=== PATIENT | female | born 1960 | race Caucasian/White ===

== ENCOUNTER 2018-04-12 16:27 | Emergency (ER) | payer BC ==
--- OUTSIDE RECORDS SUMMARY | 2018-04-12 16:36 | XMS REPORT ---
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] Problem Breast Mass 611.72 Active 83917864 Problem Postmenopausal N95.2 Active 11608018 atrophic vaginitis Problem Excessive and N92.0 Active 175845973 frequent menstruation with regular cycle Problem Other abnormal and R92.8 Active 231026805 inconclusive findings on diagnostic imaging of breast Problem Family history of Z80.3 Active 555168779 malignant neoplasm of breast ALLERGIES No Information ENCOUNTERS Encounter Location Date Diagnosis [facility] [address] Jul, OBGYN [place], [place] [id number] [facility] 103 Jul, OBGYN [place] [id number] [address] May, [facility] [address] [place], [place] [id number] [facility] [address] [place], May, [facility] [id number] [facility] Apr, [place] [id number] [facility] 103 Mar, OBGYN [place] [id number] [facility] 103 Mar, OBGYN [place], [place] [id number] [facility] 103 Mar, Endometrial intraepithelial OBGYN [facility] neoplasia [EIN] N85.02 [place], [place] [id number] [place] [facility] 103 Mar, OBGYN [place] [id number] [place] [facility] 103 Mar, OBGYN [place], [place] [id number] [place] [facility] Mar, OBGYN [place], [place] [id number] [place] [facility] [address] [place] [address] Mar, Endometrial intraepithelial [address] [place], neoplasia [EIN] N85.02 ; [place] [id number] Excessive and frequent menstruation with regular cycle N92.0 and Leiomyoma of uterus, unspecified D25.9 [place] [facility] 103 February, Endometrial intraepithelial OBGYN [facility] neoplasia [EIN] N85.02 [place] [id number] [place] [facility] 103 February, [place] [id number] [place] [facility] February, OBGYN [place], [place] [id number] [facility] [address] [place], February, Excessive and frequent [place] [id number] menstruation with regular cycle N92.0 and Leiomyoma of uterus, unspecified D25.9 [place] [facility] [address] [facility] February, Excessive and frequent OBGYN [address] [place], menstruation with regular [place] [id number] cycle N92.0 and Leiomyoma of uterus, unspecified D25.9 [place] [facility] 103 February, OBGYN [place], [place] [id number] [place] [facility] [address] [facility] February, Excessive and frequent OBGYN [address] [place], menstruation with regular [place] [id number] cycle N92.0 and Leiomyoma of uterus, unspecified D25.9 [place] [facility] Jan, OBGYN [place] [id number] [place] [facility] [address] [place] [address] 13 Jan, 2018 Excessive and frequent OBGYN [address] [place], menstruation with regular [place] [id number] cycle N92.0 [facility] 103 Jan, Excessive and frequent OBGYN [facility] menstruation with regular [place], [place] [id number] cycle N92.0 [place] [facility] 103 Jan, [facility]oma of uterus, [facility] unspecified D25.9 and [place] [id number] Excessive and frequent menstruation with regular cycle N92.0 [place] [facility] [address] [place] [address] Dec, Excessive and frequent OBGYN [address] [place], menstruation with regular [place] [id number] cycle N92.0 and Leiomyoma of uterus, unspecified D25.9 [facility] Dec, OBGYN [place] [id number] [facility] Oct, Other abnormal and [facility] inconclusive findings on [place] [id number] diagnostic imaging of breast R92.8 [facility] 103 Jul, [facility] [place] [id number] (routine) without abnormal findings Z01.419 ; Family history of malignant neoplasm of breast Z80.3 ; Encounter for screening mammogram for malignant neoplasm of breast Z12.31 ; Encounter for screening for malignant neoplasm of colon Z12.11 and Other abnormal and inconclusive findings on diagnostic imaging of breast R92.8 [facility] Jul, [facility]omyoma of uterus, [facility] unspecified D25.9 [place] [id number] [facility] 103 Apr, Family history of malignant [facility] neoplasm of breast Z80.3 ; [place], [place] [id number] Breast Mass 611.72 and Other abnormal and inconclusive findings on diagnostic imaging of breast R92.8 [facility] Mar, [place] [id number] [facility] 13 Jan, 2017 Family history of malignant [address], neoplasm of breast Z80.3 ; [place] [id number] Excessive and frequent menstruation with regular cycle N92.0 ; Leiomyoma of uterus, unspecified D25.9 and Unspecified urinary incontinence R32 [facility] Jul, Encounter for gynecological [address], examination (general) [place] [id number] (routine) with abnormal findings Z01.411 ; Encounter for screening for malignant neoplasm of cervix Z12.4 ; Encounter for screening mammogram for malignant neoplasm of breast Z12.31 ; Encounter for screening for malignant neoplasm of colon Z12.11 ; Excessive and frequent menstruation with regular cycle N92.0 ; Leiomyoma of uterus, unspecified D25.9 ; Unspecified urinary incontinence R32 and Postmenopausal atrophic vaginitis N95.2 [facility] 103 Apr, Excessive and frequent OBGYN [facility] menstruation with regular [place], [place] [id number] cycle N92.0 ; Leiomyoma of uterus, unspecified D25.9 ; Unspecified urinary incontinence R32 ; Postmenopausal atrophic vaginitis N95.2 and Unspecified ovarian cysts N83.20 [place] [facility] 103 Apr, Leiomyoma of uterus, OBGYN [facility] unspecified D25.9 and Other [place], [place] [id number] ovarian cysts N83.29 [facility] 103 Mar, [facility] menstruation with regular [place], [place] [id number] cycle N92.0 ; Leiomyoma of uterus, unspecified D25.9 ; Unspecified urinary incontinence R32 and Postmenopausal atrophic vaginitis N95.2 [place] [facility] 103 Mar, Leiomyoma of uterus, OBGYN [facility] unspecified D25.9 and Other [place] [id number] ovarian cysts N83.29 [facility] Nov, Excessive and frequent [facility] menstruation with regular [place], [place] [id number] cycle N92.0 ; Unspecified ovarian cysts N83.20 ; Leiomyoma of uterus, unspecified D25.9 ; Unspecified urinary incontinence R32 and Postmenopausal atrophic vaginitis N95.2 [facility] 103 Nov, Leiomyoma of uterus, [facility] unspecified D25.9 and [place] [id number] Unspecified ovarian cysts N83.20 [facility] 103 Sep, [facility] menstruation with regular [place], [place] [id number] cycle N92.0 ; Unspecified ovarian cysts N83.20 ; Leiomyoma of uterus, unspecified D25.9 and Unspecified urinary incontinence R32 [facility] 103 Sep, Leiomyoma of uterus, [facility] unspecified D25.9 and Other [place], [place] [id number] ovarian cysts N83.29 [facility] 103 Aug, [facility] frequent [facility] menstruation with regular [place] [id number] cycle N92.0 ; Unspecified ovarian cysts N83.20 ; Leiomyoma of uterus, unspecified D25.9 and Unspecified urinary incontinence R32 [facility] 103 Aug, Unspecified ovarian cysts [facility] N83.20 and Leiomyoma of [place], [place] [id number] uterus, unspecified D25.9 [facility] 103 Jun, Menometrorrhagia 626.2 ; [facility] Leiomyoma of uterus, [place] [id number] unspecified 218.9 ; Incontinence 788.30 and Headache 784.0 [facility] 103 Jun, Leiomyoma of uterus, [facility] unspecified 218.9 and [place], [place] [id number] Menometrorrhagia 626.[address] Apr, Menometrorrhagia 626.2 ; [facility] [address] [place], Cervical polyp 622.7 ; [place] [id number] Headache 784.0 and Incontinence 788.30 [place] [facility] [address] [place], Apr, Medical [facility] [id number] [facility] 103 Apr, Menometrorrhagia 626.2 [place] [id number] [address] Apr, Menorrhagia [address] [place] [id number] [facility] 103 February, [place], [place] [id number] [address] February, Menometrorrhagia 626.2 ; OBGYN [address] [place] [address], Leiomyoma of uterus, [place] [id number] unspecified 218.9 ; Cervical polyp 622.7 and Headache [address]84[address] [place] Jan, Menometrorrhagia [address] [place] [id number] [facility] 103 Jan, Menometrorrhagia 626.2 and [facility] Cervical polyp 622.7 [place] [id number] [facility] 103 Jan, Menometrorrhagia 626.2 and [facility] Leiomyoma of uterus, [place], [place] [id number] unspecified 218.[address] Jan, Menometrorrhagia [address]26[address] [place] [address], Cervical polyp 622.7 [place] [id number] [facility] 103 Dec, [place], [place] [id number] IMMUNIZATIONS No Known Immunizations SOCIAL HISTORY Never Assessed REASON FOR REFERRAL FUNCTIONAL STATUS PLAN OF CARE VITAL SIGNS MEDICATIONS Unknown Medications PROCEDURES No Known procedures RESULTS No Results REASON FOR VISIT bleeding MEDICAL (GENERAL) HISTORY Type Description Date Medical History eczema - mild on hands Medical History depression Medical History left arm fracture while walk-running (04/2014) Medical History chronic upper back issues and right shoulder/neck Surgical History colonoscopy 09/07/13 Surgical History Hysteroscopy, D+C, polypectomy 04/19/15 Surgical History hysteroscopy, D&C. 02/25/18 Hospitalization History childbirth 1991 Hospitalization History childbirth 1996
--- OUTSIDE RECORDS SUMMARY | 2018-04-12 16:37 | XMS REPORT ---
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 932323143 intraepithelial neoplasia [EIN] Problem Breast Mass 611.72 Active 92892373 Problem Postmenopausal N95.2 Active 87348571 atrophic vaginitis Problem Excessive and N92.0 Active 192010304 frequent menstruation with regular cycle Problem Other abnormal and R92.8 Active 076998942 inconclusive findings on diagnostic imaging of breast Problem Family history of Z80.3 Active 373799723 malignant neoplasm of breast ALLERGIES No Information ENCOUNTERS Encounter Location Date Diagnosis [facility] 103 Jul, [place] [id number] [facility] Jul, [place] [id number] [address] May, [facility] [address] [place], [place] [id number] [facility] [address] [place], May, [facility] [id number] [facility] 103 Apr, OBGYN [place], [place] [id number] [facility] 103 Mar, [place] [id number] [facility] 103 Mar, Endometrial intraepithelial OBN [facility] neoplasia [EIN] N85.02 [place] [id number] [facility] 103 Mar, OBGYN [place], [place] [id number] [place] [facility] 103 Mar, OBGYN [place], [place] [id number] [place] [facility] 103 Mar, OBGYN [place], [place] [id number] [place] [facility] [address] [facility] Mar, Endometrial intraepithelial OBGYN [address] [place], neoplasia [EIN] N85.02 ; [place] [id number] Excessive and frequent menstruation with regular cycle N92.0 and Leiomyoma of uterus, unspecified D25.9 [place] [facility] 103 February, Endometrial intraepithelial OBGYN [facility] neoplasia [EIN] N85.02 [place] [id number] [place] [facility] 103 February, OBG[place] [id number] [place] [facility] 103 February, OBGYN [place] [id number] [facility] [address] [place], February, Excessive and frequent [place] [id number] menstruation with regular cycle N92.0 and Leiomyoma of uterus, unspecified D25.9 [place] [facility] [address] [facility] February, Excessive and frequent OBGYN [address] [place], menstruation with regular [place] [id number] cycle N92.0 and Leiomyoma of uterus, unspecified D25.9 [place] [facility] 103 February, OBGYN [place], [place] [id number] [place] [facility] [address] [facility] February, Excessive and frequent OBGYN [address] [place], menstruation with regular [place] [id number] cycle N92.0 and Leiomyoma of uterus, unspecified D25.9 [place] [facility] 103 Jan, OBGYN [place], [place] [id number] [place] [facility] [address] [facility] Jan, Excessive and frequent OBGYN [address] [place], menstruation with regular [place] [id number] cycle N92.0 [facility] 103 Jan, Excessive and frequent OBGYN [facility] menstruation with regular [place], [place] [id number] cycle N92.0 [facility] 103 Jan, [facility]oma of uterus, [facility] unspecified D25.9 and [place] [id number] Excessive and frequent menstruation with regular cycle N92.0 [place] [facility] [address] [place] [address] [facility] Dec, Excessive and frequent OBGYN [address] [place], menstruation with regular [place] [id number] cycle N92.0 and Leiomyoma of uterus, unspecified D25.9 [place] [facility] 103 Dec, OBGYN [place], [place] [id number] [place] [facility] 103 Oct, Other abnormal and [facility] inconclusive findings on [place], [place] [id number] diagnostic imaging of breast R92.8 [facility] 103 Jul, Encounter for gynecological [facility] examination (general) [place], [place] [id number] (routine) without abnormal findings Z01.419 ; Family history of malignant neoplasm of breast Z80.3 ; Encounter for screening mammogram for malignant neoplasm of breast Z12.31 ; Encounter for screening for malignant neoplasm of colon Z12.11 and Other abnormal and inconclusive findings on diagnostic imaging of breast R92.8 [facility] 103 Jul, Leiomyoma of uterus, OBGYN [facility] unspecified D25.9 [place] [id number] [facility] 103 Apr, Family history of malignant [facility] neoplasm of breast Z80.3 ; [place], [place] [id number] Breast Mass 611.72 and Other abnormal and inconclusive findings on diagnostic imaging of breast R92.8 [facility] 103 Mar, OBGYN [place], [place] [id number] [place] [facility] [address] [place] [address] [facility] Jan, [facility] [address] [place], neoplasm of breast Z80.3 ; [place] [id number] Excessive and frequent menstruation with regular cycle N92.0 ; Leiomyoma of uterus, unspecified D25.9 and Unspecified urinary incontinence R32 [address] Jul, [facility] [address] [place], examination (general) [place] [id number] (routine) with abnormal findings Z01.411 ; Encounter for screening for malignant neoplasm of cervix Z12.4 ; Encounter for screening mammogram for malignant neoplasm of breast Z12.31 ; Encounter for screening for malignant neoplasm of colon Z12.11 ; Excessive and frequent menstruation with regular cycle N92.0 ; Leiomyoma of uterus, unspecified D25.9 ; Unspecified urinary incontinence R32 and Postmenopausal atrophic vaginitis N95.2 [place] [facility] 103 Apr, [facility] menstruation with regular [place], [place] [id number] cycle N92.0 ; Leiomyoma of uterus, unspecified D25.9 ; Unspecified urinary incontinence R32 ; Postmenopausal atrophic vaginitis N95.2 and Unspecified ovarian cysts N83.20 [place] [facility] 103 Apr, Leiomyoma of uterus, OBGYN [facility] unspecified D25.9 and Other [place], [place] [id number] ovarian cysts N83.29 [place] [facility] 103 Mar, Excessive and frequent OBGYN [facility] menstruation with regular [place], [place] [id number] cycle N92.0 ; Leiomyoma of uterus, unspecified D25.9 ; Unspecified urinary incontinence R32 and Postmenopausal atrophic vaginitis N95.2 [place] [facility] 103 Mar, Leiomyoma of uterus, OBGYN [facility] unspecified D25.9 and Other [place], [place] [id number] ovarian cysts N83.29 [place] [facility] 103 Nov, Excessive and frequent [facility] menstruation with regular [place] [id number] cycle N92.0 ; Unspecified ovarian cysts N83.20 ; Leiomyoma of uterus, unspecified D25.9 ; Unspecified urinary incontinence R32 and Postmenopausal atrophic vaginitis N95.2 [place] [facility] 103 Nov, Leiomyoma of uterus, [facility] unspecified D25.9 and [place] [id number] Unspecified ovarian cysts N83.20 [place] [facility] 103 Sep, Excessive and frequent [facility] menstruation with regular [place], [place] [id number] cycle N92.0 ; Unspecified ovarian cysts N83.20 ; Leiomyoma of uterus, unspecified D25.9 and Unspecified urinary incontinence R32 [place] [facility] 103 Sep, Leiomyoma of uterus, [facility] unspecified D25.9 and Other [place] [id number] ovarian cysts N83.29 [facility] 103 Aug, Excessive and frequent [facility] menstruation with regular [place], [place] [id number] cycle N92.0 ; Unspecified ovarian cysts N83.20 ; Leiomyoma of uterus, unspecified D25.9 and Unspecified urinary incontinence R32 [facility] 103 Aug, Unspecified ovarian cysts [facility] N83.20 and Leiomyoma of [place], [place] [id number] uterus, unspecified D25.9 [facility] 103 Jun, Menometrorrhagia 626.2 ; [facility] Leiomyoma of uterus, [place] [id number] unspecified 218.9 ; Incontinence 788.30 and Headache 784.0 [place] [facility] 103 Jun, Leiomyoma of uterus, [facility] unspecified 218.9 and [place], [place] [id number] Menometrorrhagia 626.[address] Apr, Menometrorrhagia 626.2 ; [facility] [address] [place], Cervical polyp 622.7 ; [place] [id number] Headache 784.0 and Incontinence 788.30 [facility] 2009 [place], Apr, Medical [place] [id number] [facility] 103 Apr, Menometrorrhagia 626.2 [place] [id number] [address] Apr, Menorrhagia [address] [place] [id number] [facility] 103 February, [place], [place] [id number] [address] February, Menometrorrhagia 626.2 ; O[address]YN [address] [place] [address], Leiomyoma of uterus, [place] [id number] unspecified 218.9 ; Cervical polyp 622.7 and Headache 784.[address] Jan, Menometrorrhagia [address] [place] [id number] [place] [facility] 103 Jan, Menometrorrhagia 626.2 and [facility] Cervical polyp 622.7 [place] [id number] [facility] 103 Jan, Menometrorrhagia 626.2 and [facility] Leiomyoma of uterus, [place], [place] [id number] unspecified 218.[address] Jan, Menometrorrhagia [address]26[address] [place], Cervical polyp 622.7 [place] [id number] [facility] 103 Dec, [place], [place] [id number] IMMUNIZATIONS No Known Immunizations SOCIAL HISTORY Never Assessed REASON FOR REFERRAL FUNCTIONAL STATUS PLAN OF CARE VITAL SIGNS MEDICATIONS Unknown Medications PROCEDURES No Known procedures RESULTS No Results REASON FOR VISIT Re:RE:New Refill Request MEDICAL (GENERAL) HISTORY Type Description Date Medical History eczema - mild on hands Medical History depression Medical History left arm fracture while walk-running (04/2014) Medical History chronic upper back issues and right shoulder/neck Surgical History colonoscopy 12/3/13 Surgical History Hysteroscopy, D+C, polypectomy 04/19/15 Surgical History hysteroscopy, D&C. 02/25/18 Hospitalization History childbirth 1991 Hospitalization History childbirth 1996
--- OUTSIDE RECORDS SUMMARY | 2018-04-12 16:37 | XMS REPORT ---
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] Problem Breast Mass 611.72 Active 63045478 Problem Postmenopausal N95.2 Active 24177283 atrophic vaginitis Problem Excessive and N92.0 Active 027511267 frequent menstruation with regular cycle Problem Other abnormal and R92.8 Active 665582220 inconclusive findings on diagnostic imaging of breast Problem Family history of Z80.3 Active 728762345 malignant neoplasm of breast ALLERGIES No Information ENCOUNTERS Encounter Location Date Diagnosis [facility] [place] [address] Jul, [place] [id number] [facility] [place]Note 2[facility] Jul, [place] [id number] [address] May, [facility] [address] [place], [place] [id number] [facility] [place] [facility] [address] [place], May, [facility] [id number] [facility] [place] 2[facility] Apr, [place] [id number] [facility] [place]Note 2[facility] [address] Mar, [place] [id number] [facility] [address] Mar, [place] [id number] [facility] [place]Note 2[facility] Mar, [place] [id number] [place] [facility] [address] [facility] Mar, Endometrial intraepithelial [address] [place], neoplasia [EIN] N85.02 ; [place] [id number] Excessive and frequent menstruation with regular cycle N92.0 and Leiomyoma of uterus, unspecified D25.9 [place] [facility] February, Endometrial intraepithelial OBGYN [facility] neoplasia [EIN] N85.02 [place] [id number] [place] [facility] February, [place] [id number] [place] [facility] February, [place] [id number] [facility] [address] [place], February, Excessive and frequent [facility] [place] [address] menstruation with regular cycle N92.0 and Leiomyoma of uterus, unspecified D25.9 [place] [facility] [address] [facility] February, Excessive and frequent [address]YN [address] [place], menstruation with regular [place] [id number] cycle N92.0 and Leiomyoma of uterus, unspecified D25.9 [place] [facility] [address] February, [place] [id number] [place] [facility] [address] [place] [facility] February, Excessive and frequent [address]BGYN [address] [place], menstruation with regular [place] [address] cycle N92.0 and Leiomyoma of uterus, unspecified D25.9 [place] [facility] Jan, [place] [id number] [place] [facility] [address] [facility] Jan, Excessive and frequent [address]BGYN [address] [place], menstruation with regular [place] [id number] cycle N92.0 [place] [facility] [address] Jan, Excessive and frequent OBGYN [facility] menstruation with regular [place], [place] [address] cycle N92.0 [place] [facility] Jan, Leiomyoma of uterus, OBGYN [facility] unspecified D25.9 and [place], [place] [id number] Excessive and frequent menstruation with regular cycle N92.[address] Dec, Excessive and frequent [address]BGYN [address] [place], menstruation with regular [place] [id number] cycle N92.0 and Leiomyoma of uterus, unspecified D25.9 [facility] Dec, O[place] [id number] [facility] Oct, Other abnormal and OBGYN [facility] inconclusive findings on [place] [id number] diagnostic imaging of breast R92.8 [facility] 103 Jul, Encounter for gynecological OBGYN [facility] examination (general) [place], [place] [id number] (routine) without abnormal findings Z01.419 ; Family history of malignant neoplasm of breast Z80.3 ; Encounter for screening mammogram for malignant neoplasm of breast Z12.31 ; Encounter for screening for malignant neoplasm of colon Z12.11 and Other abnormal and inconclusive findings on diagnostic imaging of breast R92.8 [facility] 103 Jul, Leiomyoma of uterus, OBGYN [facility] unspecified D25.9 [place] [id number] [facility] Apr, [facility] of [facility] Z80.3 ; [place], [place] [id number] Breast Mass 611.72 and Other abnormal and inconclusive findings on diagnostic imaging of breast R92.8 [facility] 103 Mar, OBG[place] [id number] [address] Jan, Family history of malignant OBGYN [address] [place], neoplasm of breast Z80.3 ; [place] [id number] Excessive and frequent menstruation with regular cycle N92.0 ; Leiomyoma of uterus, unspecified D25.9 and Unspecified urinary incontinence R[address] [place] [address] Jul, Encounter for gynecological [address]BGYN [address] [place], [facility] (general) [place] [id number] (routine) with abnormal findings Z01.411 ; Encounter for screening for malignant neoplasm of cervix Z12.4 ; Encounter for screening mammogram for malignant neoplasm of breast Z12.31 ; Encounter for screening for malignant neoplasm of colon Z12.11 ; Excessive and frequent menstruation with regular cycle N92.0 ; Leiomyoma of uterus, unspecified D25.9 ; Unspecified urinary incontinence R32 and Postmenopausal atrophic vaginitis N95.2 [place] [facility] Apr, Excessive and frequent OBGYN [facility] menstruation with regular [place], [place] [address] cycle N92.0 ; Leiomyoma of uterus, unspecified D25.9 ; Unspecified urinary incontinence R32 ; Postmenopausal atrophic vaginitis N95.2 and Unspecified ovarian cysts N83.20 [place] [facility] [address] Apr, Leiomyoma of uterus, OBGYN [facility] unspecified D25.9 and Other [place], [place] [address] ovarian cysts N83.29 [place] [facility] Mar, Excessive and frequent OBGYN [facility] menstruation with regular [place], [place] [address] cycle N92.0 ; Leiomyoma of uterus, unspecified D25.9 ; Unspecified urinary incontinence R32 and Postmenopausal atrophic vaginitis N95.2 [place] [facility] Mar, Leiomyoma of uterus, OBGYN [facility] unspecified D25.9 and Other [place], [place] [id number] ovarian cysts N83.29 [place] [facility] Nov, Excessive and frequent OBGYN [facility] menstruation with regular [place], [place] [address] cycle N92.0 ; Unspecified ovarian cysts N83.20 ; Leiomyoma of uterus, unspecified D25.9 ; Unspecified urinary incontinence R32 and Postmenopausal atrophic vaginitis N95.2 [place] [facility] Nov, Leiomyoma of uterus, OBGYN [facility] unspecified D25.9 and [place] [id number] Unspecified ovarian cysts N83.20 [facility] Sep, [facility] and frequent [facility] menstruation with regular [place] [address] cycle N92.0 ; Unspecified ovarian cysts N83.20 ; Leiomyoma of uterus, unspecified D25.9 and Unspecified urinary incontinence R32 [facility] 103 Sep, Leiomyoma of uterus, [facility] unspecified D25.9 and Other [place], [place] [id number] ovarian cysts N83.29 [facility] 103 Aug, Excessive and frequent [facility] menstruation with regular [place] [address] cycle N92.0 ; Unspecified ovarian cysts N83.20 ; Leiomyoma of uterus, unspecified D25.9 and Unspecified urinary incontinence R32 [facility] Aug, Unspecified [facility] N83.20 and Leiomyoma of [place] [id number] uterus, unspecified D25.9 [facility] 103 Jun, Menometrorrhagia 626.2 ; [facility] Leiomyoma of uterus, [place] [id number] unspecified 218.9 ; Incontinence 788.30 and Headache 784.0 [facility] 103 Jun, Leiomyoma of uterus, [facility] unspecified 218.9 and [place], [place] [id number] Menometrorrhagia [address]26.[address] Apr, Menometrorrhagia 626.2 ; [facility] [address] [place], Cervical polyp 622.7 ; [place] [id number] Headache 784.0 and Incontinence 788.30 [facility] [address] [place], Apr, [facility] [place] [id number] [facility] Apr, Menometrorrhagia 626.2 [place] [id number] [address] Apr, Menorrhagia [address] [place], [place] [id number] [facility] [address] February, [place], [place] [id number] [address] February, Menometrorrhagia 626.2 ; [address] [place], Leiomyoma of uterus, [place] [id number] unspecified 218.9 ; Cervical polyp 622.7 and Headache 784.[address] Jan, Menometrorrhagia [address]26[address] [place], [place] [id number] [facility] 103 Jan, Menometrorrhagia 626.2 and [facility] Cervical polyp 622.7 [place], [place] [id number] [facility] 103 Jan, Menometrorrhagia 626.2 and [facility] Leiomyoma of uterus, [place] [address] unspecified 218.[address] Jan, Menometrorrhagia 626.2 [address] [facility] [address] [place] [address], Cervical polyp 622.7 [place] [id number] [facility] [address] Dec, [place], [place] [id number] IMMUNIZATIONS No Known Immunizations SOCIAL HISTORY Never Assessed REASON FOR REFERRAL FUNCTIONAL STATUS PLAN OF CARE VITAL SIGNS MEDICATIONS Unknown Medications PROCEDURES No Known procedures RESULTS No Results REASON FOR VISIT Question About Hysterectomy on 05/19 from my Primary Doctor MEDICAL (GENERAL) HISTORY Type Description Date Medical History eczema - mild on hands Medical History depression Medical History left arm fracture while walk-running (04/2014) Medical History chronic upper back issues and right shoulder/neck Surgical History colonoscopy 09/07/13 Surgical History Hysteroscopy, D+C, polypectomy 04/19/15 Surgical History hysteroscopy, D&C. 02/25/18 Hospitalization History childbirth 1991 Hospitalization History childbirth 1996
--- OUTSIDE RECORDS SUMMARY | 2018-04-12 16:37 | XMS REPORT ---
:1960 Author Organization [facility] Address [address] [place] [address] Care Team Providers Name Role Phone Ifeanyi Gomez Unavailable Unavailable PROBLEMS Type Condition ICD9-CM [id number] Onset Condition SNOMED Code Code Code Dates Status Problem Leiomyoma of uterus, D25.9 Active 83571920 unspecified Problem Unspecified urinary R32 Active 054917259 incontinence Problem Endometrial N85.02 Active 940431188 intraepithelial neoplasia [EIN] Problem Breast Mass 611.72 Active 55709732 Problem Postmenopausal N95.2 Active 83114290 atrophic vaginitis Problem Excessive and N92.0 Active 527918400 frequent menstruation with regular cycle Problem Other abnormal and R92.8 Active 030768696 inconclusive findings on diagnostic imaging of breast Problem Family history of Z80.3 Active 618532930 malignant neoplasm of breast ALLERGIES No Information ENCOUNTERS Encounter Location Date Diagnosis [facility] [address] Jul, [place] [id number] [facility] Jul, [place] [id number] [address] May, [facility] [address] [place], [place] [id number] [facility] [address] [place], May, [facility] [id number] [facility] [address] Apr, O[place], [place] [id number] [facility] Mar, [place] [id number] [facility] Mar, Endometrial intraepithelial OBN [facility] neoplasia [EIN] N85.02 [place], [place] [id number] [facility] [address] Mar, [place], [place] [id number] [place] [facility] [address] Mar, [place], [place] [address] [place] [facility] Mar, [place], [place] [id number] [place] [facility] [address] [facility] Mar, Endometrial intraepithelial [address] [place], neoplasia [EIN] N85.02 ; [place] [id number] Excessive and frequent menstruation with regular cycle N92.0 and Leiomyoma of uterus, unspecified D25.9 [place] [facility] February, Endometrial intraepithelial OBGYN [facility] neoplasia [EIN] N85.02 [place], [place] [id number] [place] [facility] February, [place] [id number] [place] [facility] February, [place], [place] [address] [facility] [address] [place], February, Excessive and frequent [facility] [place] [address] menstruation with regular cycle N92.0 and Leiomyoma of uterus, unspecified D25.9 [place] [facility] [address] [facility] February, Excessive and frequent [address]YN [address] [place], menstruation with regular [place] [address] cycle N92.0 and Leiomyoma of uterus, unspecified D25.9 [place] [facility] [address] February, [place] [address] [place] [facility] [address] [facility] February, Excessive and frequent [address]BGYN [address] [place], menstruation with regular [place] [address] cycle N92.0 and Leiomyoma of uterus, unspecified D25.9 [place] [facility] Jan, [place], [place] [id number] [place] [facility] [address] [facility] Jan, Excessive and frequent [address]YN [address] [place], menstruation with regular [place] [address] cycle N92.0 [facility] Jan, Excessive and frequent OBGYN [facility] menstruation with regular [place], [place] [address] cycle N92.[address] [facility] 103 Jan, [facility]oma of uterus, [facility] unspecified D25.9 and [place], [place] [id number] Excessive and frequent menstruation with regular cycle N92.0 [place] [facility] [address] [place] [address] [facility] Dec, Excessive and frequent OBGYN [address] [place], menstruation with regular [place] [address] cycle N92.0 and Leiomyoma of uterus, unspecified D25.9 [facility] 103 Dec, [place] [id number] [facility] 103 Oct, Other abnormal [facility] inconclusive findings on [place], [place] [address] diagnostic imaging of breast R92.8 [facility] 103 Jul, Encounter for gynecological [facility] examination (general) [place], [place] [address] (routine) without abnormal findings Z01.419 ; Family history of malignant neoplasm of breast Z80.3 ; Encounter for screening mammogram for malignant neoplasm of breast Z12.31 ; Encounter for screening for malignant neoplasm of colon Z12.11 and Other abnormal and inconclusive findings on diagnostic imaging of breast R92.8 [facility] 103 Jul, Leiomyoma of uterus, OBGYN [facility] unspecified D25.9 [place], [place] [id number] [facility] 103 Apr, Family history of malignant [facility] neoplasm of breast Z80.3 ; [place], [place] [address] Breast Mass 611.72 and Other abnormal and inconclusive findings on diagnostic imaging of breast R92.8 [facility] 103 Mar, O[place], [place] [id number] [place] [facility] [address] [place] [address] [facility] Jan, Family history of [facility] [address] [place], neoplasm of breast Z80.3 ; [place] [address] Excessive and frequent menstruation with regular cycle N92.0 ; Leiomyoma of uterus, unspecified D25.9 and Unspecified urinary incontinence R32 [address] Jul, [facility] [address] [place], examination (general) [place] [address] (routine) with abnormal findings Z01.411 ; Encounter for screening for malignant neoplasm of cervix Z12.4 ; Encounter for screening mammogram for malignant neoplasm of breast Z12.31 ; Encounter for screening for malignant neoplasm of colon Z12.11 ; Excessive and frequent menstruation with regular cycle N92.0 ; Leiomyoma of uterus, unspecified D25.9 ; Unspecified urinary incontinence R32 and Postmenopausal atrophic vaginitis N95.2 [place] [facility] Apr, [facility] with regular [place], [place] [address] cycle N92.0 ; Leiomyoma of uterus, unspecified D25.9 ; Unspecified urinary incontinence R32 ; Postmenopausal atrophic vaginitis N95.2 and Unspecified ovarian cysts N83.20 [place] [facility] Apr, Leiomyoma of uterus, OBGYN [facility] unspecified D25.9 and Other [place], [place] [address] ovarian cysts N83.29 [place] [facility] Mar, Excessive and frequent OBGYN [facility] menstruation with regular [place], [place] [address] cycle N92.0 ; Leiomyoma of uterus, unspecified D25.9 ; Unspecified urinary incontinence R32 and Postmenopausal atrophic vaginitis N95.2 [place] [facility] Mar, Leiomyoma of uterus, OBGYN [facility] unspecified D25.9 and Other [place], [place] [address] ovarian cysts N83.29 [place] [facility] Nov, [facility] and frequent [facility] menstruation with regular [place], [place] [address] cycle N92.0 ; Unspecified ovarian cysts N83.20 ; Leiomyoma of uterus, unspecified D25.9 ; Unspecified urinary incontinence R32 and Postmenopausal atrophic vaginitis N95.2 [facility] 103 Nov, Leiomyoma of uterus, [facility] unspecified D25.9 and [place], [place] [id number] Unspecified ovarian cysts N83.20 [facility] 103 Sep, Excessive and frequent [facility] menstruation with regular [place], [place] [address] cycle N92.0 ; Unspecified ovarian cysts N83.20 ; Leiomyoma of uterus, unspecified D25.9 and Unspecified urinary incontinence R32 [facility] 103 Sep, Leiomyoma of uterus, [facility] unspecified D25.9 and Other [place], [place] [id number] ovarian cysts N83.29 [facility] 103 Aug, Excessive and frequent [facility] menstruation with regular [place], [place] [address] cycle N92.0 ; Unspecified ovarian cysts N83.20 ; Leiomyoma of uterus, unspecified D25.9 and Unspecified urinary incontinence R32 [facility] 103 Aug, Unspecified ovarian cysts [facility] N83.20 and Leiomyoma of [place], [place] [address] uterus, unspecified D25.9 [facility] 103 Jun, Menometrorrhagia 626.2 ; [facility] Leiomyoma of uterus, [place], [place] [address] unspecified 218.9 ; Incontinence 788.30 and Headache 784.0 [facility] 103 Jun, Leiomyoma of uterus, [facility] unspecified 218.9 and [place], [place] [id number] Menometrorrhagia 626.[address] Apr, Menometrorrhagia 626.2 ; [facility] [address] [place], Cervical polyp 622.7 ; [place] [id number] Headache 784.0 and Incontinence 788.30 [facility] [address] [place], Apr, Medical [place] [id number] [facility] 103 Apr, Menometrorrhagia 626.2 [place] [id number] [address] Apr, Menorrhagia 626.2 [facility] [address] [place] [id number] [facility] 103 February, [place], [place] [id number] [address] February, Menometrorrhagia 626.2 ; OBG[address] [place] [address], Leiomyoma of uterus, [place] [address] unspecified 218.9 ; Cervical polyp 622.7 and Headache 784.[address] Jan, Menometrorrhagia 626.2 [facility] [address] [place] [id number] [facility] 103 Jan, Menometrorrhagia 626.2 and [facility] Cervical polyp 622.7 [place], [place] [id number] [facility] 103 Jan, Menometrorrhagia 626.2 and [facility] Leiomyoma of uterus, [place], [place] [address] unspecified 218.[address] Jan, Menometrorrhagia 626[address] [place] [address], Cervical polyp 622.7 [place] [id number] [facility] 103 Dec, [place], [place] [id number] IMMUNIZATIONS No Known Immunizations SOCIAL HISTORY Never Assessed REASON FOR REFERRAL FUNCTIONAL STATUS PLAN OF CARE VITAL SIGNS MEDICATIONS Medication Instructions Dosage Frequency Start Date End Date Duration Status megestrol 40 mg orally bid 1 12h 30 day(s) Active PROCEDURES No Known procedures RESULTS No Results REASON FOR VISIT New Refill Request MEDICAL (GENERAL) HISTORY Type Description Date Medical History eczema - mild on hands Medical History depression Medical History left arm fracture while walk-running (04/2014) Medical History chronic upper back issues and right shoulder/neck Surgical History colonoscopy 09/07/13 Surgical History Hysteroscopy, D+C, polypectomy 04/19/15 Surgical History hysteroscopy, D&C. 02/25/18 Hospitalization History childbirth 1991 Hospitalization History childbirth 1997
[2018-04-12 16:40] VITALS: BP 137/86
--- NOTE | 2018-04-12 17:17 | UC ---
Truncal Trauma HPI - HPI Summary HPI Summary: WAS CHANGING THE BED SHEETS ON HER SON'S BED ONE WEEK AGO WHEN SHE CAUGHT HER FOOT ON THE BED FRAME AND FELL, BRUISING HER LEFT LOWER LEG AND INJURING HER LEFT RIBS. STATES HER LEG IS IMPROVED BUT SHE HAS PERSISTENT LEFT RIB PAIN. WORSE WITH MOVEMENT, DEEP BREATHS, COUGHING AND SNEEZING. SHE DENIES ANY SHORTNESS OF BREATH, CHEST PAIN, FEVER, PALPITATIONS. - History Of Current Complaint Chief Complaint: UCChestPain Stated Complaint: RIB INJURY Time Seen by Provider: 04/12/18 16:54 Hx Obtained From: Patient Hx Last Menstrual Period: March 20, 2018 Onset/Duration: Sudden Onset, Lasting Days, Still Present Onset Of Pain: Immediate Severity Initially: Moderate Severity Currently: Moderate Pain Intensity: 6 Pain Scale Used: 0-10 Numeric Mechanism Of Injury: Blunt Trauma Aggravating Factor(s): Movement, Deep Breathing, Cough Alleviating factor(s): Rest Associated Signs And Symptoms: Negative: SOB, Chest Pain, Cough, Hematuria, Abdominal Pain, Fever, Nausea, Vomiting - Allergies/Home Medications Allergies/Adverse Reactions: Allergies Allergy/AdvReac Type Severity Reaction Status Date / Time No Known Allergies Allergy Verified 04/12/18 16:40 Home Medications: Home Medications Cyanocobalamin (Vitamin B-12) [B-12] 500 mg PO DAILY 04/12/18 [History Confirmed 04/12/18] PMH/Surg Hx/FS Hx/Imm Hx Psychological History: Anxiety, Depression - Surgical History Surgical History: Yes Surgery Procedure, Year, and Place: D&C 04/19 - Family History Known Family History: Negative: Hypertension - Social History Alcohol Use: Occasionally Substance Use Type: None Smoking Status (MU): Never Smoked Tobacco - Immunization History Most Recent Tetanus Shot: ABOUT 8 YEARS AGO Review of Systems Constitutional: Negative Skin: Bruising - LEFT LEG Respiratory: Negative Cardiovascular: Negative Gastrointestinal: Negative Musculoskeletal: Other: - LEFT ANTERIOR RIB PAIN All Other Systems Reviewed And Are Negative: Yes Physical Exam Triage Information Reviewed: Yes Appearance: Well-Appearing, No Pain Distress, Well-Nourished Vital Signs: Initial Vital Signs Temp 98.9 F 04/12/18 16:35 Pulse 70 04/12/18 16:35 Resp 18 04/12/18 16:35 BP 137/86 04/12/18 16:35 Pulse Ox 99 04/12/18 16:35 Vital Signs Reviewed: Yes Eyes: Positive: Conjunctiva Clear ENT: Positive: Hearing grossly normal Neck: Positive: Supple Respiratory: Positive: Lungs clear, Normal breath sounds, No respiratory distress, No accessory muscle use Cardiovascular: Positive: Pulses Normal Abdomen Description: Positive: Soft Musculoskeletal: Positive: No Edema, Other: - TTP LEFT ANTERIOR RIB CAGE Neurological: Positive: Alert Psychological: Positive: Age Appropriate Behavior Skin: Positive: Other - HEALING BRUISING LEFT ANTERIOR LOWER LEG Diagnostics - Radiology LEFT RIB/CHEST XRAY Xray Interpretation: No Acute Changes Radiology Interpretation Completed By: Radiologist Truncal Trauma Course/Dx - Differential Dx/Diagnosis Provider Diagnoses: LFT RIB CONTUSION Discharge - Sign-Out/Discharge Documenting (check all that apply): Discharge/Admit/Transfer - Discharge Plan Condition: Stable Disposition: HOME Patient Education Materials: Rib Contusion (ED) Referrals: Dyana Mccracken MD [Primary Care Provider] - If Needed Additional Instructions: X-RAYS TODAY UNREMARKABLE FOR RIB FRACTURE. LUNGS LOOK CLEAR. TAKE IBUPROFEN NEEDED FOR DISCOMFORT. USE A HEATING PAD, STRETCH AND BE SURE TO TAKE DEEP BREATHS PERIODICALLY TO KEEP YOUR LUNGS EXPANDED. GO TO THE ED WITHOUT FAIL IF YOU DEVELOP FEVER, SHORTNESS OF BREATH, CHEST PAIN , RAPID HEARTBEAT, DIZZINESS OR ANY OTHER CONCERNING SYMPTOMS. RIB INJURIES AND FRACTURES: You have been diagnosed as having either bruised or broken ribs. These two injuries are treated in the same way. It will usually take four to six weeks for these injured ribs to heal. Sometimes, rib belts or anesthetic injections of the chest wall help reduce the pain. If you are using a rib belt, you should cough or take a deep breath at least every hour or two to prevent lung complications. You should not engage in any strenuous physical activity until released by your physician. The usual rule is "if it hurts, don't do it." Rib fractures can lead to serious lung complications including lung collapse, hemorrhage, and pneumonia. You should call the physician or return at once if any of the following occur: (1) Fever or chills. (2) Persistent cough, coughing up blood, or shortness of breath. (3) Increasing pain. (4) Weakness, lightheadedness, or fainting. - Billing Disposition and Condition Condition: STABLE Disposition: Home
--- NOTE | 2018-04-12 17:54 | RAD ---
INDICATION: Left rib injury. COMPARISON: There are no prior studies available for comparison. TECHNIQUE: 4 views of the left ribs and dual-energy PA views of the chest were obtained. FINDINGS: No fracture or significant focal osseous abnormality is seen. The heart is within normal limits in size. The lungs are clear. There is no evidence for pneumothorax or pleural effusion. IMPRESSION: NO EVIDENCE FOR FRACTURE.
== END 2018-04-12 18:17 | disposition home or self-care (01) ==
LOC: UCEAST 16:27
DX: S20.20XA Contusion of thorax, unspecified, initial encounter (principal); W18.30XA Fall on same level, unspecified, initial encounter; Y93.E9 Activity, other interior property and clothing maintenance; Y92.003 Bedroom of unspecified non-institutional (private) residence as the place of occurrence of the external cause; F41.9 Anxiety disorder, unspecified; F32.9 Major depressive disorder, single episode, unspecified
CPT/HCPCS: 99211; G0463